=== PATIENT | female | born 1960 | race Caucasian/White ===

== ENCOUNTER 2022-08-06 11:21 | Emergency (ER) | payer OTHER ==
[2022-08-06] MEDS ORDERED: Ondansetron 4 MG/2 ML SDV IVPUSH ONE (12:28)
[2022-08-06] MEDS ORDERED: Sodium Chloride 0.9% 1,000 ML IV SCH (12:30)
[2022-08-06 12:39] LABS: BASOPHILS ABSOLUTE AUTO 0.04 K/uL (0.00-0.10); BASOPHILS PERCENT AUTO 0.3 % (0.1-1.3); HEMATOCRIT 39.3 % (34.3-46.0); HEMOGLOBIN 13.2 g/dL (11.2-15.5); IMMATURE GRAN ABSOLUTE AUTO 0.07 K/uL (0.00-0.23); IMMATURE GRAN PERCENT AUTO 0.6 % (0.0-0.7); LYMPHOCYTES ABSOLUTE AUTO 0.83 K/uL (0.8-3.3); LYMPHOCYTES PERCENT AUTO 6.5 % (11.4-47.7); MEAN CORPUSCULAR HEMOGLOBIN 27.9 pg (31.6-35.5); MEAN CORPUSCULAR HGB CONC 33.6 g/dL (31.6-35.5); MEAN CORPUSCULAR VOLUME 83.1 fL (81.4-99.0); MONOCYTES ABSOLUTE AUTO 1.12 K/uL (0.20-0.90); MONOCYTES PERCENT AUTO 8.8 % (3.3-12.6); NEUTROPHILS ABSOLUTE AUTO 10.65 K/uL (1.0-7.6); NEUTROPHILS PERCENT AUTO 83.8 % (40.0-78.1); PLATELET COUNT,PLT 234 K/uL (130-375); RED BLOOD CELL COUNT 4.73 M/uL (3.77-5.24); WHITE BLOOD CELL COUNT,WBC 12.7 K/uL (3.2-11.0)
[2022-08-06 12:59] LABS: A/G RATIO 0.6 (1.2-2.2); ALANINE AMINOTRANSFERASE,ALT 58 U/L (12-78); ALBUMIN 2.9 g/dL (3.4-5.0); ALKALINE PHOSPHATASE 106 U/L (46-116); ANION GAP 11.9 mmol/L (5.0-14.0); ASPARTATE AMNIOTRANSFERASE,AST 53 U/L (15-37); BILIRUBIN TOTAL 0.3 mg/dL (0.2-1.0); BLOOD UREA NITROGEN,BUN 11 mg/dL (7-18); CALCIUM 9.1 mg/dL (8.5-10.1); CARBON DIOXIDE,CO2 28 mmol/L (21-32); CHLORIDE,CL 99 mmol/L (100-108); CREATININE 1.2 mg/dL (0.6-1.0); EST CRCL DRUG DOSING (CG) 44.86 mL/min; ESTIMATED GFR 52 mL/min (>60); GLUCOSE RANDOM 144 mg/dL (74-106); POTASSIUM,K 3.9 mmol/L (3.6-5.2); PROTEIN TOTAL,TP 7.7 g/dL (6.4-8.2); SODIUM,NA 135 mmol/L (140-148)
[2022-08-06] MEDS ORDERED: Acetaminophen 500 MG Tab PO ONE (13:11)
[2022-08-06 16:23] VITALS: BP 121/69; PULSE 77
== END 2022-08-06 16:25 | disposition home or self-care (01) ==
LOC: JP.ED 11:21
DX: K52.9 Noninfective gastroenteritis and colitis, unspecified (principal); I10 Essential (primary) hypertension; J45.909 Unspecified asthma, uncomplicated; Z79.899 Other long term (current) drug therapy; Z86.16 Personal history of COVID-19
CPT/HCPCS: 36415; 80053; 85025; 96361; 96374; 99284; A9270; J2405; J7030

== ENCOUNTER 2022-08-07 14:17 | Emergency (ER) | payer OTHER ==
[2022-08-07] MEDS ORDERED: Sodium Chloride 0.9% 1,000 ML IV SCH (14:45)
[2022-08-07 14:55] LABS: BASOPHILS PERCENT AUTO 0.2 % (0.1-1.3); HEMATOCRIT 32.5 % (34.3-46.0); IMMATURE GRAN ABSOLUTE AUTO 0.11 K/uL (0.00-0.23); IMMATURE GRAN PERCENT AUTO 0.9 % (0.0-0.7); LYMPHOCYTES ABSOLUTE AUTO 0.91 K/uL (0.8-3.3); LYMPHOCYTES PERCENT AUTO 7.5 % (11.4-47.7); MEAN CORPUSCULAR HEMOGLOBIN 27.6 pg (31.6-35.5); MEAN CORPUSCULAR HGB CONC 33.8 g/dL (31.6-35.5); MEAN CORPUSCULAR VOLUME 81.7 fL (81.4-99.0); MONOCYTES PERCENT AUTO 8.2 % (3.3-12.6); NEUTROPHILS ABSOLUTE AUTO 10.09 K/uL (1.0-7.6); NEUTROPHILS PERCENT AUTO 83.2 % (40.0-78.1); PLATELET COUNT,PLT 207 K/uL (130-375); RED BLOOD CELL COUNT 3.98 M/uL (3.77-5.24); WHITE BLOOD CELL COUNT,WBC 12.1 K/uL (3.2-11.0)
[2022-08-07 15:00] LABS: BASOPHILS ABSOLUTE AUTO 0.02 K/uL (0.00-0.10)
[2022-08-07 15:19] LABS: A/G RATIO 0.6 (1.2-2.2); ALANINE AMINOTRANSFERASE,ALT 95 U/L (12-78); ALBUMIN 2.3 g/dL (3.4-5.0); ALKALINE PHOSPHATASE 105 U/L (46-116); ASPARTATE AMNIOTRANSFERASE,AST 125 U/L (15-37); BILIRUBIN TOTAL 0.4 mg/dL (0.2-1.0); BLOOD UREA NITROGEN,BUN 8 mg/dL (7-18); C-REACTIVE PROTEIN 23.53 mg/dL (0.0-0.3); CALCIUM 8.2 mg/dL (8.5-10.1); CARBON DIOXIDE,CO2 22 mmol/L (21-32); CHLORIDE,CL 99 mmol/L (100-108); EST CRCL DRUG DOSING (CG) 53.83 mL/min; ESTIMATED GFR 64 mL/min (>60); GLUCOSE RANDOM 120 mg/dL (74-106); POTASSIUM,K 3.3 mmol/L (3.6-5.2); PROTEIN TOTAL,TP 6.4 g/dL (6.4-8.2); SODIUM,NA 132 mmol/L (140-148)
[2022-08-07 15:21] LABS: ANION GAP 14.3 mmol/L (5.0-14.0)
[2022-08-07] MEDS ORDERED: Sodium Chloride 0.9% 10 ML Syringe FLUSH ONE (15:51)
[2022-08-07] MEDS ORDERED: Sodium Chloride 0.9% 50 ML IV SCH (16:00)
[2022-08-07] MEDS ORDERED: Iopamidol 612 MG/ML 100 ML Bottle IV SCH (16:00)
[2022-08-07] MEDS ORDERED: Amoxicillin/Clavulanate K 875-125 MG Tab PO ONE (17:11)
[2022-08-07] MEDS ORDERED: Potassium Chloride 20 MEQ Tab.ER PO ONE (17:16)
[2022-08-07 18:06] VITALS: BP 117/66; PULSE 77
== END 2022-08-07 18:06 | disposition home or self-care (01) ==
LOC: JP.ED 14:17
DX: J18.9 Pneumonia, unspecified organism (principal); R19.7 Diarrhea, unspecified; I10 Essential (primary) hypertension; J45.909 Unspecified asthma, uncomplicated; Z86.16 Personal history of COVID-19; Z20.822 Contact with and (suspected) exposure to COVID-19
CPT/HCPCS: 36415; 71046; 74177; 80053; 85025; 86140; 87040; 87635; 96360; 96361; 99284; A9270; J3490; J7030; Q9967; U0002